=== PATIENT | male | born 1945 | race Caucasian/White ===

== ENCOUNTER 2018-08-28 14:22 | Outpatient (CLI) | payer MEDICARE, BC ==
--- NOTE | 2018-08-28 14:55 | RAD ---
LUMBAR SPINE 2 VIEWS: HISTORY: low back pain FINDINGS: No fracture, subluxation or bony destruction is seen. There is mild levoscoliosis of the lumbar spine .
--- NOTE | 2018-08-28 14:56 | RAD ---
THORACIC SPINE 3 VIEWS: HISTORY: Back pain FINDINGS: No acute fracture, subluxation or bony destruction is seen. Degenerative changes are present.
== END 2018-08-28 14:23 | disposition home or self-care (01) ==
LOC: SCSRAD 14:22
PROVIDERS: ATTEND Nurse Practitioner Family
DX: M54.6 Pain in thoracic spine (principal)
CPT/HCPCS: 72072; 72100

== ENCOUNTER 2022-10-27 17:13 | Emergency (ER) | payer MEDICARE, BC ==
[~2022-10-27 17:13] MED LIST: Iopamidol-370 76% 500 ML MDV (1 ML CHARGE) ONE
[2022-10-27 18:24] LABS: #Eosinphils 0.2 thou/uL (0.0-0.7); #Neutrophils 7.2 thou/uL (1.40-6.50); %Basophils 0.4 % (0.0-1.0); %Eosinophils 1.9 % (0.0-10.0); %Lymphocytes 15.1 % (21.0-51.0); %Neutrophils 72.1 % (42.0-75.0); Hemoglobin 16.3 g/dL (14.0-18.0); Mean Corpuscular HGB CONC 33.3 g/dL (32.0-36.0); Mean Corpuscular Hemoglobin 30.5 pg (27.0-31.0); Mean Corpuscular Volume 91.4 fl (78.0-98.0); Mean Platelet Volume 10.2 fL (7.4-10.4); Platelet Count 234 10x3/uL (130-400); RBC Distribution Width 12.8 % (11.5-14.5); Red Blood Cell (RBC) Count 5.35 mill/uL (4.70-6.10); White Blood Cell (WBC) Count 9.9 10x3/uL (4.8-10.8)
[2022-10-27] MEDS ORDERED: Ondansetron PF 4 MG/2 ML Vial ONE ×3 (18:31→18:47)
[2022-10-27 18:45] LABS: ALT (SGPT) 39 U/L (8-55); AST (SGOT) 32 U/L (5-34); Albumin 3.8 g/dL (3.4-4.8); Alkaline Phosphatase 96 U/L (40-110); Anion Gap 11 mmol/L (10-20); BUN (Urea Nitrogen) 19 mg/dL (8.4-25.7); Bilirubin, Total 0.6 mg/dL (0.2-1.2); Calc. Creatinine Clearance 0 mL/min (70-130); Calcium 8.8 mg/dL (7.8-10.44); Carbon Dioxide 26 mmol/L (23-31); Chloride 99 mmol/L (98-107); Estimated GFR 60; Globulin 2.6 g/dL (2.4-3.5); Glucose 152 mg/dL (83-110); Lipase 20 U/L (8-78); Potassium 4.3 mmol/L (3.5-5.1); Protein, Total 6.4 g/dL (5.8-8.1); Sodium 132 mmol/L (136-145)
[2022-10-27 19:19] LABS: Bacteria/HPF None Seen HPF (None Seen); Bilirubin Negative (Negative); Blood, Urine Trace (Negative); CAUTI Indications for Culture Dysuria,urgency,freq; Clarity Clear (Clear); Glucose, Urine (Dipstick) 50 mg/dL (Negative); Ketone, Urine Negative (Negative); Leukocyte Negative Leu/uL (Negative); Nitrite Negative (Negative); Protein, Urine (Dipstick) 20 mg/dL (Neg-Trace); RBC/HPF 0-3 HPF (0-3); Specific Gravity, Urine 1.027 (1.002-1.036); Squamous Epithelial 0-3 HPF (0-3); WBC/HPF 0-3 HPF (0-3); pH, Urine 5.5 (5.0-9.0)
[2022-10-27 19:20] LABS: Urine Culture Reflex No No
[2022-10-27] MEDS ORDERED: Mag-Al 1200 mg/1200 mg/30 ML UDCUP ONE (20:23)
== END 2022-10-27 21:55 | disposition home or self-care (01) ==
LOC: ERS 17:13
DX: R10.13 Epigastric pain (principal); R42 Dizziness and giddiness; E78.5 Hyperlipidemia, unspecified; Z79.82 Long term (current) use of aspirin
CPT/HCPCS: 51701; 71045; 74177; 76705; 80053; 81001; 83690; 84484; 85025; 93005; 96361; 96374; J2405; Q9967

== ENCOUNTER 2022-11-05 19:33 | Emergency (ER) | payer MEDICARE, BC ==
[2022-11-05 19:58] LABS: #Basophils 0.1 thou/uL (0.0-0.2); #Eosinphils 0.3 thou/uL (0.0-0.7); #Monocytes 1.1 thou/uL (0.11-0.59); #Neutrophils 8.9 thou/uL (1.40-6.50); %Basophils 0.8 % (0.0-1.0); %Eosinophils 2.3 % (0.0-10.0); %Lymphocytes 12.8 % (21.0-51.0); %Monocytes 8.9 % (0.0-10.0); %Neutrophils 74.9 % (42.0-75.0); Hematocrit 49.1 % (42.0-52.0); Hemoglobin 16.6 g/dL (14.0-18.0); Mean Corpuscular HGB CONC 33.8 g/dL (32.0-36.0); Mean Corpuscular Hemoglobin 30.5 pg (27.0-31.0); Mean Corpuscular Volume 90.1 fl (78.0-98.0); Mean Platelet Volume 9.6 fL (7.4-10.4); Platelet Count 232 10x3/uL (130-400); RBC Distribution Width 12.5 % (11.5-14.5); Red Blood Cell (RBC) Count 5.45 mill/uL (4.70-6.10); White Blood Cell (WBC) Count 11.9 10x3/uL (4.8-10.8)
[2022-11-05 20:20] LABS: Acetaminophen Less than 10 mcg/mL (10.0-30.0); Alcohol Less than 10.0 mg/dL (Less than 10); Salicylate Less than 8.0 mg/dL (15.0-30.0)
[2022-11-05 20:26] LABS: ALT (SGPT) 29 U/L (8-55); AST (SGOT) 26 U/L (5-34); Albumin 3.7 g/dL (3.4-4.8); Alkaline Phosphatase 107 U/L (40-110); Anion Gap 14 mmol/L (10-20); BUN (Urea Nitrogen) 23 mg/dL (8.4-25.7); Bilirubin, Total 0.5 mg/dL (0.2-1.2); Calc. Creatinine Clearance 0 mL/min (70-130); Calcium 8.7 mg/dL (7.8-10.44); Carbon Dioxide 21 mmol/L (23-31); Chloride 103 mmol/L (98-107); Estimated GFR 62; Globulin 2.9 g/dL (2.4-3.5); Glucose 165 mg/dL (83-110); Potassium 4.1 mmol/L (3.5-5.1); Protein, Total 6.6 g/dL (5.8-8.1); Sodium 134 mmol/L (136-145)
[2022-11-05] MEDS ORDERED: Ondansetron ODT 4 MG TAB ONE (20:36)
[2022-11-05] MEDS ORDERED: Dicyclomine 20 MG TAB ONE (20:36)
[2022-11-05 22:33] LABS: Bilirubin Negative (Negative); Blood, Urine Trace (Negative); CAUTI Indications for Culture Alt mental st,lethar; Clarity Clear (Clear); Glucose, Urine (Dipstick) 500 mg/dL (Negative); Ketone, Urine Negative (Negative); Leukocyte Negative Leu/uL (Negative); Mucous/LPF Rare LPF (<2+); Nitrite Negative (Negative); Protein, Urine (Dipstick) 10 mg/dL (Neg-Trace); RBC/HPF 0-3 HPF (0-3); Specific Gravity, Urine 1.025 (1.002-1.036); Squamous Epithelial 0-3 HPF (0-3); Urobilinogen Normal mg/dL (Less than 2); WBC/HPF 0-3 HPF (0-3); pH, Urine 5.5 (5.0-9.0)
[2022-11-05 22:34] LABS: Bacteria/HPF 1+ HPF (None Seen)
[2022-11-05 22:35] LABS: Amphetamine Not Detected (NotDetected); Barbiturates Screen Not Detected (NotDetected); Benzodiazepine Screen Detected (NotDetected); Cocaine Metabolite Screen Not Detected (NotDetected); Methadone Not Detected (NotDetected); Methamphetamine Not Detected (NotDetected); Opiate Screen Not Detected (NotDetected); Oxycodone Screen Not Detected (NotDetected); Phencyclidine (PCP) Not Detected (NotDetected); THC/Cannabinoid Screen Not Detected (NotDetected); Tricyclic Screen Not Detected (NotDetected); Urine Culture Reflex No No
[2022-11-06] MEDS ORDERED: Lorazepam 1 MG TAB ONE (02:36)
[2022-11-06] MEDS ORDERED: PARoxetine 20 MG TAB PO SCH (03:00)
[2022-11-06] MEDS ORDERED: Promethazine HCl 25 MG/ML VIAL IM SCH (03:00)
[2022-11-06] MEDS ORDERED: Loratadine 10 MG TAB PO SCH (09:00)
== END 2022-11-06 12:04 ==
LOC: ERS 19:33
DX: R45.851 Suicidal ideations (principal); E78.5 Hyperlipidemia, unspecified; Z79.899 Other long term (current) drug therapy
CPT/HCPCS: 36415; 80053; 80306; 80307; 81001; 84443; 85025; 93005; J2550; Q0162

== ENCOUNTER 2022-12-19 15:48 | Outpatient (CLI) | payer MEDICARE, BC ==
[2022-12-19 17:14] LABS: #Basophils 0.1 10x3/uL (0.0-0.2); #Eosinphils 0.4 10x3/uL (0.0-0.5); #Neutrophils 6.9 10x3/uL (1.5-8.4); %Basophils 0.7 % (0.0-2.0); %Eosinophils 3.9 % (0.0-6.0); %Lymphocytes 16.1 % (18.0-47.0); %Monocytes 9.7 % (0.0-10.0); %Neutrophils 69.2 % (40.0-75.0); Hematocrit 45.2 % (38.8-50.0); Hemoglobin 15.2 g/dL (13.5-17.5); Mean Corpuscular HGB CONC 33.6 g/dL (32.0-36.0); Mean Corpuscular Hemoglobin 30.7 pg (27.0-33.0); Mean Corpuscular Volume 91.3 fl (81.2-95.1); Platelet Count 307 10x3/uL (150-450); RBC Distribution Width 12.9 % (11.5-14.5); Red Blood Cell (RBC) Count 4.95 10x6/uL (4.32-5.72)
[2022-12-19 17:27] LABS: ALT (SGPT) 27 U/L (8-55); AST (SGOT) 34 U/L (5-34); Albumin 3.7 g/dL (3.4-4.8); Alkaline Phosphatase 119 U/L (40-110); Anion Gap 12 mmol/L (10-20); BUN (Urea Nitrogen) 14 mg/dL (8.4-25.7); Bilirubin, Direct 0.1 mg/dL (0.1-0.3); Bilirubin, Total 0.4 mg/dL (0.2-1.2); Calc. Creatinine Clearance 0 mL/min (70-130); Calcium 8.7 mg/dL (7.8-10.44); Carbon Dioxide 28 mmol/L (23-31); Chloride 104 mmol/L (98-107); Estimated GFR 58; Glucose 144 mg/dL (83-110); Potassium 4.8 mmol/L (3.5-5.1); Protein, Total 6.6 g/dL (5.8-8.1); Sodium 139 mmol/L (136-145)
== END 2022-12-19 15:49 | disposition home or self-care (01) ==
LOC: LABBT 15:48
PROVIDERS: ATTEND Surgery
DX: Z01.818 Encounter for other preprocedural examination (principal); K80.20 Calculus of gallbladder without cholecystitis without obstruction
CPT/HCPCS: 80048; 80076; 85025; 93005; 93010

== ENCOUNTER 2023-02-16 13:50 | Outpatient (CLI) | payer MEDICARE, BC | END 2023-02-16 13:51 | disposition home or self-care (01) | LOC: BICCT 13:50 | PROVIDERS: ATTEND Urology | DX: N20.0 Calculus of kidney (principal); Z90.49 Acquired absence of other specified parts of digestive tract; Z98.890 Other specified postprocedural states | CPT/HCPCS: 74176 ==

== ENCOUNTER 2025-03-10 08:51 | Emergency (ER) | payer MEDICARE ==
[2025-03-10 09:13] LABS: #Basophils 0.05 10x3/uL (0.0-0.2); #Eosinophils Less than 0.03 10x3/uL (0.0-0.7); #Monocytes 1.78 10x3/uL (0.11-0.59); #Neutrophils 19.79 10x3/uL (1.40-6.50); %Basophils 0.2 % (0.0-1.0); %Eosinophils 0.0 % (0.0-10.0); %Lymphocytes 5.3 % (21.0-51.0); %Monocytes 7.7 % (0.0-10.0); %Neutrophils 86.1 % (42.0-75.0); Hematocrit 44.0 % (42.0-52.0); Hemoglobin 14.3 g/dL (14.0-18.0); Mean Corpuscular Hemoglobin 29.4 pg (27.0-31.0); Mean Corpuscular Volume 90.5 fL (78.0-98.0); Platelet Count 175 10x3/uL (130-400); Red Blood Cell (RBC) Count 4.86 mill/uL (4.70-6.10); White Blood Cell (WBC) Count 23.02 10x3/uL (4.8-10.8)
[2025-03-10 09:29] LABS: ALT (SGPT) 24 U/L (Less than 45); AST (SGOT) 47 U/L (11-34); Albumin 3.8 g/dL (3.1-4.5); Alkaline Phosphatase 97 U/L (40-110); BUN (Urea Nitrogen) 23 mg/dL (8.4-25.7); Bilirubin, Total 0.6 mg/dL (0.3-1.2); Calc. Creatinine Clearance 0 mL/min (70-130); Calcium 8.9 mg/dL (7.8-10.44); Carbon Dioxide 21 mmol/L (23-31); Globulin 2.7 g/dL (2.4-3.5); Glucose 125 mg/dL (83-110)
[2025-03-10 09:44] LABS: Chloride 107 mmol/L (98-107); Potassium 5.4 mmol/L (3.5-5.1); Sodium 142 mmol/L (136-145)
[2025-03-10 10:03] LABS: Anion Gap 19 mmol/L (10-20)
[2025-03-10 10:29] LABS: Glucose, Urine (Dipstick) Negative (Negative); Leukocyte Negative (Negative); Protein, Urine (Dipstick) Trace mg/dL (Neg-Trace); Specific Gravity, Urine Greater/Equal 1.030 (1.005-1.030)
[2025-03-10 10:42] LABS: Bacteria/HPF 3+ HPF (None Seen); CAUTI Indications for Culture Dysuria,urgency,freq; RBC/HPF 0-3 HPF (0-3)
[2025-03-10 10:44] LABS: Urine Culture Reflex No No
[2025-03-10] MEDS ORDERED: Iopamidol-370 76% 500 ML MDV (1 ML CHARGE) ONE (11:52)
[2025-03-10] MEDS ORDERED: Bacitracin 1 PK ONE (12:35)
== END 2025-03-10 13:50 | disposition home or self-care (01) ==
LOC: ERS 08:51
DX: S51.812A Laceration without foreign body of left forearm, initial encounter (principal); M84.48XA Pathological fracture, other site, initial encounter for fracture; Y04.8XXA Assault by other bodily force, initial encounter
CPT/HCPCS: 51701; 70450; 71260; 72125; 74177; 80053; 81001; 85025